=== PATIENT | male | born 1935 | race Caucasian/White ===

== ENCOUNTER 2017-09-05 07:21 | Day surgery (SDC) | payer MEDICARE, OTHER ==
[~2017-09-05] VITALS: Ht 167.6 cm; Wt 72.6 kg
[~2017-09-05 07:21] MED LIST: ACEHYDSO AD; ACEHYDSO BOTHEARS; ALBU90OI6 INH; ASPI325 PO; ASPI81CH PO; ASPI81EC; ASPI81EC PO; ATEN25; ATOR10; Aspirin EC81 MG PO; BUDE6HFA; CEPH500 PO; CLOP75; CYCL10; CYCL10 PO; Coq-10100 MG PO; DOC250 PO; DOCU100; DOCU100 PO; Dazidox10 MG; ERGO50000; ERGO50000 PO; FERSU220EL; FIBE4P; FISH OIL; FISH OIL 1,0001 EAC1 PO; FISH1000; FISH1000 PO; GABA100 PO; GABA300; GLIP10; GLIP5; HYDCHLSU PO; INSUASPI; INSUASPI SC; INSULANI; INSULANPEN; INSULANPEN SC; LAVAP17G; LAVAP17G PO; LISI20 PO; LISI5; LISI5 PO; MECL25; MORP15ER; MULVITB&C; MULVITMIND; MULVITMIND PO; NEBI10; NIAC500; NITR.4SL; OMEP20ER PO; OXYACE5T PO; OXYC10TA19; OXYC10TA19 PO; OXYGEN; PHENY100ER; PHENY100ER PO; PRED5; SUPER B COMPLE1 EACH PO; TAMS.4ER; TAMS.4ER PO; TIOT18; TOCO400; TOPI50 PO; TORSE20; TRAM50 PO; UBID100
[2017-09-05] MEDS ORDERED: ALBU90OI61 INH (08:24)
[2017-09-05] MEDS ORDERED: GLACIAL ACETIC A1 ML MC (08:25)
== END 2017-09-05 10:37 | disposition home or self-care (01) ==
LOC: ORSCSDS 07:21
DX: M20.42 Other hammer toe(s) (acquired), left foot (principal); L03.032 Cellulitis of left toe; L85.9 Epidermal thickening, unspecified; I10 Essential (primary) hypertension; J44.9 Chronic obstructive pulmonary disease, unspecified; Z87.891 Personal history of nicotine dependence; I25.10 Atherosclerotic heart disease of native coronary artery without angina pectoris; E11.9 Type 2 diabetes mellitus without complications; Z79.4 Long term (current) use of insulin; Z79.82 Long term (current) use of aspirin; Z79.899 Other long term (current) drug therapy
CPT/HCPCS: 82947; J0330; J0690; J3010; J7120

== ENCOUNTER → 2017-09-16 | Outpatient (CLI) | payer MEDICARE, OTHER ==
[~2017-09-16] MED LIST changes: +ALBU90OI61 INH; +GLACIAL ACETIC A1 ML MC
== END | disposition home or self-care (01) ==
LOC: LAB EV 11:40
DX: E11.42 Type 2 diabetes mellitus with diabetic polyneuropathy (principal)
CPT/HCPCS: 82043

== ENCOUNTER → 2018-04-29 | Outpatient (CLI) | payer MEDICARE, OTHER ==
[2018-04-29 09:53] LABS: BASOPHILS ABSOLUTE AUTO 0.03 K/mm3 (0.00-0.23); BASOPHILS PERCENT AUTO 0 % (0-2); EOSINOPHILS ABSOLUTE AUTO 0.12 K/mm3 (0.00-0.68); EOSINOPHILS PERCENT AUTO 1 % (0-6); Hematocrit 45.6 % (37.0-53.0); Hemoglobin 15.3 g/dL (13.5-17.5); IMMATURE GRAN ABSOLUTE AUTO 0.04 K/mm3 (0.00-0.10); IMMATURE GRAN PERCENT AUTO 1 % (0-1); LYMPHOCYTES ABSOLUTE AUTO 1.45 K/mm3 (0.84-5.20); LYMPHOCYTES PERCENT AUTO 17 % (21-46); MONOCYTES ABSOLUTE AUTO 0.63 K/mm3 (0.16-1.47); MONOCYTES PERCENT AUTO 7 % (4-13); Mean Corpuscular HGB 30.8 pg (26.0-34.0); Mean Corpuscular HGB Conc 33.6 g/dL (31.5-36.5); Mean Corpuscular Volume 92 fL (80-100); Mean Platelet Volume 9.7 fL (9.1-12.4); NEUTROPHILS ABSOLUTE AUTO 6.48 K/mm3 (1.96-9.15); NEUTROPHILS PERCENT AUTO 74 % (41-73); Platelet Count 208 K/mm3 (150-400); RDW Standard Deviation 43.6 fL (35.1-46.3); Red Blood Cell Count 4.97 M/mm3 (4.30-5.90); White Blood Cell Count 8.75 K/mm3 (4.00-11.30)
== END | disposition home or self-care (01) ==
LOC: LAB EV 09:50 → LAB SHORT 09:50
PROVIDERS: Physician Assistant
DX: K92.2 Gastrointestinal hemorrhage, unspecified (principal)
CPT/HCPCS: 85025

== ENCOUNTER 2019-04-20 11:30 | Observation (INO) | payer MEDICARE, OTHER ==
[~2019-04-20] VITALS: Ht 175.3 cm; Wt 76.9 kg
[~2019-04-20 11:30] MED LIST changes: +Acetic Acid15 ML LEFTEAR; -GLACIAL ACETIC A1 ML MC; -LISI20 PO; -OXYC10TA19 PO; +OXYC5 PO; +Prinivil10 MG PO
[2019-04-20 12:02] LABS: BASOPHILS ABSOLUTE AUTO 0.02 K/mm3 (0.00-0.23); BASOPHILS PERCENT AUTO 0 % (0-2); EOSINOPHILS PERCENT AUTO 1 % (0-6); Hematocrit 46.1 % (37.0-53.0); Hemoglobin 14.8 g/dL (13.5-17.5); IMMATURE GRAN ABSOLUTE AUTO 0.02 K/mm3 (0.00-0.10); IMMATURE GRAN PERCENT AUTO 0 % (0-1); LYMPHOCYTES ABSOLUTE AUTO 1.44 K/mm3 (0.84-5.20); LYMPHOCYTES PERCENT AUTO 20 % (21-46); MONOCYTES ABSOLUTE AUTO 0.61 K/mm3 (0.16-1.47); MONOCYTES PERCENT AUTO 9 % (4-13); Mean Corpuscular HGB Conc 32.1 g/dL (31.5-36.5); Mean Corpuscular Volume 96 fL (80-100); Mean Platelet Volume 10.4 fL (9.1-12.4); NEUTROPHILS ABSOLUTE AUTO 5.02 K/mm3 (1.96-9.15); NEUTROPHILS PERCENT AUTO 70 % (41-73); Platelet Count 168 K/mm3 (150-400); RDW Coefficient Variation 12.8 % (11.7-14.2); RDW Standard Deviation 44.8 fL (35.1-46.3); Red Blood Cell Count 4.78 M/mm3 (4.30-5.90); White Blood Cell Count 7.21 K/mm3 (4.00-11.30)
[2019-04-20 12:20] LABS: Alanine Aminotransfer (ALT/SGP 22 U/L (12-78); Albumin, Blood 3.7 g/dL (3.4-5.0); Albumin/Globulin Ratio 0.9 (0.8-1.8); Alk Phos 66 U/L (50-136); Anion Gap 7 mmol/L (6-16); Aspartate Aminotrans (AST/SGOT 23 U/L (12-37); Bilirubin, Total 0.5 mg/dL (0.1-1.0); Blood Urea Nitrogen 32 mg/dL (8-24); Bun/Creatinine Ratio 31.4 (12.0-20.0); CO2, Blood 27 mmol/L (21-32); Calcium, Blood 9.3 mg/dL (8.5-10.1); Chloride, Blood 105 mmol/L (98-108); Creatinine, Blood 1.02 mg/dL (0.60-1.20); Globulin, Blood 4.3 g/dL (2.2-4.0); Glomerular Filtration Rate >60 (60-); Glucose, Blood 187 mg/dL (70-99); Potassium, Blood 4.7 mmol/L (3.5-5.5); Sodium, Blood 139 mmol/L (136-145)
[2019-04-20] MEDS ORDERED: DOC250 PO (14:47)
[2019-04-20] MEDS ORDERED: CLOP75 PO (14:47)
[2019-04-20] MEDS ORDERED: Capsaicin60 GM TOP (14:47)
[2019-04-20] MEDS ORDERED: HYDCOR2.5C TOP (14:48)
[2019-04-20] MEDS ORDERED: Motion Sickness25 M5 PO (14:50)
[2019-04-20 15:27] LABS: Cholesterol 233 mg/dL (50-200); HDL Cholesterol 78 mg/dL (>39); LDL/HDL RATIO 1.8; Low Density Lipoprotein Chol 141 mg/dL (0-110); Triglycerides 69 mg/dL (30-160); Very Low Density Lipoprot Chol 13 mg/dL (6-32)
--- NOTE | 2019-04-20 15:45 | NUR ---
PATIENT ARRIVED VIA [facility], REPORT RECEIVED FROM SHANNA AZUL IN ED. L SIDED WEAKNESS AND SLURRED SPEECH HAS NOW RESOLVED. VSS, ON RA. PATIENT REPORTS GOOD PAIN CONTROL AT THIS TIME, OXYCODONE GIVEN X1 IN ED FOR CHRONIC "ALL OVER PAIN" PATIENT ORIENTED TO ROOM AND USE OF CALL LIGHT.
--- NOTE | 2019-04-20 17:06 | NUR ---
echocardiogram completed.
--- NOTE | 2019-04-20 19:31 | NUR ---
04/20/191929 DR PEREZ (CARDIOLOGY MD) CALLED AND REQUESTED PHONE NO. OF ATTENDING MD SIMS. NUMBER GIVEN AND PLANS TO CALL DR FRY REGARDING HIS ECHO TEST THAT WAS DONE TODAY. NO OTHER INFO. GIVEN.
--- NOTE | 2019-04-20 20:03 | NUR ---
04/20/191999 TO CTA VIA [facility]. NAIL EXPERT NOTIFIED.
--- NOTE | 2019-04-21 00:23 | NUR ---
04/21/19 0014 PAGED OPHTHALMOLOGY ASSISTANT MD ABOUT PT'S GRADUAL DECREASED HEART RATE SINCE ADMISSION. PRESENTLY ON HEART MONITOR HE IS "SINUS FRANCISCO. AT 45-46 WITH BBB AND OCC PACS. PT SLEEPING AND ASYMPTOMATIC. STATES TO "JUST WATCH IT FOR NOW."
--- NOTE | 2019-04-21 04:05 | NUR ---
04/21/19 0330 ASSISTED PT TO STAND AT BEDISDE FOR VOIDING. SLIGHT INCONTINENCE IN BRIEF---CHANGED. GIVEN SNACK AND WATER WITH MED NOW. PT NPO AFTER 4 AM FOR PROCEDURE. HEART MONITOR AT SR IN THE 60'S NOW PER CONSUMER SAFETY INSPECTOR, HAYLEY. VITALS STABLE.
[2019-04-21 04:43] LABS: BASOPHILS ABSOLUTE AUTO 0.02 K/mm3 (0.00-0.23); BASOPHILS PERCENT AUTO 0 % (0-2); EOSINOPHILS ABSOLUTE AUTO 0.17 K/mm3 (0.00-0.68); EOSINOPHILS PERCENT AUTO 2 % (0-6); Hematocrit 43.5 % (37.0-53.0); Hemoglobin 13.9 g/dL (13.5-17.5); IMMATURE GRAN ABSOLUTE AUTO 0.02 K/mm3 (0.00-0.10); IMMATURE GRAN PERCENT AUTO 0 % (0-1); LYMPHOCYTES ABSOLUTE AUTO 2.17 K/mm3 (0.84-5.20); LYMPHOCYTES PERCENT AUTO 31 % (21-46); MONOCYTES ABSOLUTE AUTO 0.68 K/mm3 (0.16-1.47); MONOCYTES PERCENT AUTO 10 % (4-13); Mean Corpuscular HGB 30.2 pg (26.0-34.0); Mean Corpuscular Volume 94 fL (80-100); Mean Platelet Volume 10.3 fL (9.1-12.4); NEUTROPHILS ABSOLUTE AUTO 4.02 K/mm3 (1.96-9.15); NEUTROPHILS PERCENT AUTO 57 % (41-73); Platelet Count 147 K/mm3 (150-400); RDW Coefficient Variation 12.9 % (11.7-14.2); RDW Standard Deviation 44.2 fL (35.1-46.3); Red Blood Cell Count 4.61 M/mm3 (4.30-5.90); White Blood Cell Count 7.08 K/mm3 (4.00-11.30)
[2019-04-21 05:02] LABS: Anion Gap 5 mmol/L (6-16); Blood Urea Nitrogen 32 mg/dL (8-24); Bun/Creatinine Ratio 30.8 (12.0-20.0); CO2, Blood 28 mmol/L (21-32); Calcium, Blood 8.7 mg/dL (8.5-10.1); Chloride, Blood 104 mmol/L (98-108); Creatinine, Blood 1.04 mg/dL (0.60-1.20); Glomerular Filtration Rate >60 (60-); Glucose, Blood 110 mg/dL (70-99); Potassium, Blood 4.1 mmol/L (3.5-5.5); Sodium, Blood 137 mmol/L (136-145)
--- NOTE | 2019-04-21 13:08 | NUR ---
Patient is sitting on the edge of his bes and alert. 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 Patient voiced appreciation for the visit. I will continue to remain available to patient and family.
--- NOTE | 2019-04-21 13:22 | NUR ---
TIMEOUT FOR PETEY COMPLETED AT 1305. PETEY COMPLETED AT 1320; PT TOLERATED WELL. DR SONI SPOKE WITH PT POST PETEY REALTIVE TO FINDINGS. CALL LIGHT IN REACH.
--- NOTE | 2019-04-21 13:35 | NUR ---
PT SITTING UP. PT DENIES CP OR ANY PAIN.
--- NOTE | 2019-04-21 14:25 | NUR ---
PT DRANK SIPS OF WATER WITH NO ASPIRATION. PT DENIES ANY PAIN. PT WATCHING TV AND CALL LIGHT IN REACH.
--- NOTE | 2019-04-21 18:28 | NUR ---
PATIENT A/OX4, UP WITH FWW AND 1 ASSIST TO RESTROOM. 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 PATIENT TOLERATING SOFT DIET THIS EVENING FOR DINNER. CONTINENT/INCONTINENT. 20G IV TO R AC WNL AND SL. VSS, ON RA. CALM AND COOPERATIVE WITH CARE, USES CALL LIGHT APPROPRIATELY FOR ASSISTANCE. MEDICATED X1 FOR CHRONIC "ALL OVER" PAIN WITH OXYCODONE. PATIENT TAKES PILLS WHOLE WITH WATER.
--- NOTE | 2019-04-22 05:43 | NUR ---
SHIFT SUMMARY NO ACUTE CHANGES THIS EVENING. PT SLEPT WELL THROUGH MOST OF THE NIGHT. PT INCONTINENT/CONTINENT. PULL UP IN PLACE. APPEARS SLIGHTLY MORE CONFUSED DURING THE EVENING, HAVING A BIT MORE DIFFICULTY ANSWERING QUESTIONS BUT WAS ABLE TO EVENTUALLY ANSWER ALL QUESTIONS APPROPRIATELY. PT HAD A SNACK OF YOGURT AND SANDWICH BEFORE BED AND TOLERATED WELL. MEDICATED W/ 5 MG ROXICODONE BEFORE BED, NO FURTHER REQUESTS FOR PAIN MEDICATION THIS SHIFT. TELEMETRY UNIT IN PLACE, READING THIS EVENING SINUS FRANCISCO W/ BBB AND PAC'S AT 57. VSS. WILL CONTINUE TO MONITOR.
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
[2019-04-22] MEDS ORDERED: ACET325 PO (12:02)
[2019-04-22] MEDS ORDERED: ASPI81CH PO (12:03)
--- NOTE | 2019-04-22 12:55 | NUR ---
PT UP TO RR WITH USE OF WALKER. VOIDED AND STOOLED. BACK TO CHAIR.
--- NOTE | 2019-04-22 15:10 | NUR ---
DISCHARGE SUMMARY PT DISCHARGED TO HOME. PT LEFT ROOM VIA WHEELCHAIR WITH TECHNICAL SERVICES REP ESCORT AT THIS TIME. PT EDUCATED ON MEDICATIONS AND INSTRUCTED TO FOLLOW UP WITH PCP AND DR. SONI. PT EXPRESSED CONCERN ABOUT NOT HAVING A PCP WITH [facility]. BRENTON QUINTERO CALLED MS AND MS TO CALL PT TO SCHEDULE THIS FOLLOW UP APPOINTMENT WITH THE NEWLY ASSIGNED PCP. THERAPEUTIC COMMUNICATION AND ACTIVE LISTENING UTILIZED.
[2019-05-01] MEDS ORDERED: MIRALAX17 GM PO (12:44)
[2019-05-01] MEDS ORDERED: PHENY100ER PO (12:44)
[2019-05-01] MEDS ORDERED: TUMS500 MG PO (12:46)
[2019-05-01] MEDS ORDERED: Flomax0.4 MG PO (12:46)
[2019-05-01] MEDS ORDERED: NITR.6SL SL (12:46)
== END 2019-04-22 15:39 | disposition home or self-care (01) ==
LOC: ER 11:30 → MEDS 11:31 → ER 15:32 → MEDS 15:33 → ENPENDDIS 04-22 11:53 → MEDS 04-22 15:39
PROVIDERS: Emergency Medicine; ADMIT Internal Medicine
DX: G45.9 Transient cerebral ischemic attack, unspecified (principal); I11.9 Hypertensive heart disease without heart failure; E11.9 Type 2 diabetes mellitus without complications; I35.0 Nonrheumatic aortic (valve) stenosis; I77.9 Disorder of arteries and arterioles, unspecified; I25.2 Old myocardial infarction; M54.9 Dorsalgia, unspecified; G89.29 Other chronic pain; F11.20 Opioid dependence, uncomplicated; Z85.038 Personal history of other malignant neoplasm of large intestine; Z87.891 Personal history of nicotine dependence; Z79.1 Long term (current) use of non-steroidal anti-inflammatories (NSAID); Z88.5 Allergy status to narcotic agent; Z88.7 Allergy status to serum and vaccine; Z88.8 Allergy status to other drugs, medicaments and biological substances; Z79.899 Other long term (current) drug therapy
CPT/HCPCS: 36415; 70450; 70498; 71045; 80048; 80053; 80061; 82947; 83036; 84443; 85025; 93005; 93010; 93306; 93312; 93325; 93880; 96372; 99152; 99285-25; G0378; J1650; J2250; J3010; J7030; Q9967

== ENCOUNTER 2019-05-04 05:42 | Day surgery (SDC) | payer OTHER, MEDICARE ==
[~2019-05-04] VITALS: Ht 167.6 cm; Wt 72.0 kg
[~2019-05-04 05:42] MED LIST changes: +ACET325 PO; +CLOP75 PO; +Capsaicin60 GM TOP; +Flomax0.4 MG PO; +HYDCOR2.5C TOP; +MIRALAX17 GM PO; +Motion Sickness25 M5 PO; +NITR.6SL SL; +TUMS500 MG PO
--- NOTE | 2019-05-04 08:16 | NUR ---
PT RETURNED TO RECOVERY ROOM IN [facility]. PT'S IN ROOM TO SEE PT. DR SONI IN ROOM TO SEE PT AND . PT HAS RIGHT RADIAL TR BAND IN PLACE WITH WRIST BOARD. PT TRANSFERED TO BSC TO VOID.
--- NOTE | 2019-05-04 08:25 | NUR ---
RIGHT RADIAL TR BAND SITE WITH WRIST SOFT WITH NO HEMATOMA AND NO PULSATILE BLEEDING. PT EATING BREAKFAST. CALL LIGHT IN REACH.
[2019-05-04] MEDS ORDERED: Toprol Xl25 MG PO (08:37)
[2019-05-04] MEDS ORDERED: ELIQUIS2.5 MG PO (08:38)
--- NOTE | 2019-05-04 10:10 | NUR ---
9 CC OF AIR REMOVED OVER 15 MIN FROM NOW DEFLATED RIGHT TR BAND. NO HEMATOMA AND NO PULSATILE BLEEDING. DISCHARGE INSTRUCTIONS REVIEWED AND ALL QUESTIONS ANSWERED.
--- NOTE | 2019-05-04 10:18 | NUR ---
NO CHANGES TO DEFLATED RIGHT TR BAND.
--- NOTE | 2019-05-04 10:33 | NUR ---
NO CHANGES TO DEFLATED RIGHT TR BAND SITE.
--- NOTE | 2019-05-04 11:11 | NUR ---
DEFLATED RIGHT TR BAND REMOVED AND POLLYMEM PLACED OVER RIGHT RADIAL SITE AND RIGHT WRIST BOARD PLACED BACK ON. RIGHT RADIAL SITE SOFT WITH NO HEMATOMA AND NO PULSATILE BLEEDING. RIGHT ARM SLING PLACED. 20 G IV DISCONTINUED FROM LEFT AC WITH INTACT CANNULA. PT ESCORTED OUT VIA WHEELCHAIR ESCORT.
== END 2019-05-04 11:15 | disposition home or self-care (01) ==
LOC: MHTC 05:42
DX: Z01.810 Encounter for preprocedural cardiovascular examination (principal); I25.119 Atherosclerotic heart disease of native coronary artery with unspecified angina pectoris; I35.0 Nonrheumatic aortic (valve) stenosis; I65.21 Occlusion and stenosis of right carotid artery; I48.0 Paroxysmal atrial fibrillation; E11.9 Type 2 diabetes mellitus without complications; E78.5 Hyperlipidemia, unspecified; J44.9 Chronic obstructive pulmonary disease, unspecified; Z86.73 Personal history of transient ischemic attack (TIA), and cerebral infarction without residual deficits; Z79.01 Long term (current) use of anticoagulants; Z79.82 Long term (current) use of aspirin; Z79.899 Other long term (current) drug therapy; Z79.4 Long term (current) use of insulin; Z87.891 Personal history of nicotine dependence; Z88.8 Allergy status to other drugs, medicaments and biological substances
CPT/HCPCS: 93454; 99152; 99153; C1769; C1894; J1644; J2250; J3010; J7030; Q9967

== ENCOUNTER 2019-12-29 18:43 | Inpatient (IN) | payer OTHER, MEDICARE ==
[~2019-12-29] VITALS: Ht 182.9 cm; Wt 79.5 kg
[~2019-12-29 18:43] MED LIST changes: +B Complex-Foli1 EACH PO; +ELIQUIS2.5 MG PO; +FISH OIL 500 M1 EAC1 PO; +Hair, Skin & N1 EACH; +MAGNESIUM GLUCO27 MG PO; +METO25ER PO; -MULVITMIND PO; +Motion Sickness25 M1 PO; -Prinivil10 MG PO; +SODCHL3.5O BOTHEYES; +VITAMIN D-40010 MCG PO
[2019-12-29 19:15] LABS: BASOPHILS ABSOLUTE AUTO 0.01 K/mm3 (0.00-0.23); BASOPHILS PERCENT AUTO 0 % (0-2); EOSINOPHILS ABSOLUTE AUTO 0.06 K/mm3 (0.00-0.68); EOSINOPHILS PERCENT AUTO 1 % (0-6); Hemoglobin 11.7 g/dL (13.5-17.5); IMMATURE GRAN ABSOLUTE AUTO 0.04 K/mm3 (0.00-0.10); IMMATURE GRAN PERCENT AUTO 0 % (0-1); LYMPHOCYTES PERCENT AUTO 19 % (21-46); MONOCYTES ABSOLUTE AUTO 0.81 K/mm3 (0.16-1.47); MONOCYTES PERCENT AUTO 8 % (4-13); Mean Corpuscular HGB Conc 31.6 g/dL (31.5-36.5); Mean Corpuscular Volume 98 fL (80-100); Mean Platelet Volume 10.4 fL (9.1-12.4); NEUTROPHILS PERCENT AUTO 73 % (41-73); Platelet Count 175 K/mm3 (150-400); RDW Coefficient Variation 12.9 % (11.7-14.2); RDW Standard Deviation 45.9 fL (35.1-46.3); Red Blood Cell Count 3.77 M/mm3 (4.30-5.90); White Blood Cell Count 10.82 K/mm3 (4.00-11.30)
[2019-12-29 19:31] LABS: International Normalized Ratio 1.1; Prothrombin Time Results 11.7 Sec (9.7-11.5)
[2019-12-29 19:33] LABS: Alanine Aminotransfer (ALT/SGP 13 U/L (12-78); Albumin, Blood 2.7 g/dL (3.4-5.0); Albumin/Globulin Ratio 0.8 (0.8-1.8); Alk Phos 47 U/L (50-136); Anion Gap 8 mmol/L (6-16); Aspartate Aminotrans (AST/SGOT 17 U/L (12-37); Bilirubin, Total 0.6 mg/dL (0.1-1.0); Blood Urea Nitrogen 72 mg/dL (8-24); Bun/Creatinine Ratio 69.9 (12.0-20.0); CO2, Blood 24 mmol/L (21-32); Calcium, Blood 8.5 mg/dL (8.5-10.1); Chloride, Blood 106 mmol/L (98-108); Creatinine, Blood 1.03 mg/dL (0.60-1.20); Globulin, Blood 3.3 g/dL (2.2-4.0); Glomerular Filtration Rate >60 (60-); Glucose, Blood 318 mg/dL (70-99); Potassium, Blood 5.4 mmol/L (3.5-5.5); Sodium, Blood 138 mmol/L (136-145)
[2019-12-29] MEDS ORDERED: OXYC5 PO (20:35)
[2019-12-29] MEDS ORDERED: INSULANPEN SC (20:51)
--- NOTE | 2019-12-29 22:55 | NUR ---
ADMIT NOTE ADMIT 84 YEAR OLD MALE TO ICU 10 PER SERGIO VIA ER TO HOSPITALIST DR. GUZMAN AND DR DARBY. TRANSFER TO BED USLING LIFT SHEET. DR DARBY SPOKE TO THIS RN TO GIVE UPDATE. ON PATIENT CONDITION. ORDERS NOTED. MONITOR PLACED SHOWING A FIB HEART RATE 120'S-130'S. MEDICATED WITH 5MG IV LOPRESSOR. SEE MONITOR STRIPS. LUNG SOUNDS CLEAR DECREASED SOUNDS IN THE BASES SPO2 98% ON ROOM AIR. ABDOMENS SOFT TENDER WITH BOWEL SOUNDS FOUR QUADS. NIELSEN WELL IN BED BLOOD CONSENT AND RELEASE OF MEDICAL INFORMATION COMPLETED. PULSES PRESENT NO EDEMA NOTED. RAMBLING CONVERSATIONS UNABLE TO GIVE ACCURATE INFORMATION RE MEDICATIONS/ALLERGIES. VISUAL HALLUCINATIONS NOTED STATES HE SEES HIS DOG "LACEY " RUNNING UNDER THE CURTAIN AND INTO THE ROOM TO SEE HIM. STATES "I SURE MISS HIM AND I KNOW HE MISSES ME."DEPENDS IN PLACE MODERATE AMT DK BROWN DRIED STOOL NOTED ATTENDS CHANGED AND PARTIAL BED BATH KALI CARE GIVEN. COOPERATIVE FOLLOWS DIRECTION. NIELSEN WELL IN BED.CONTINUE TO MONITOR AND REPORT CHANGE IN PATIENT CONDITION.
[2019-12-30 03:29] LABS: BASOPHILS ABSOLUTE AUTO 0.01 K/mm3 (0.00-0.23); BASOPHILS PERCENT AUTO 0 % (0-2); EOSINOPHILS ABSOLUTE AUTO 0.04 K/mm3 (0.00-0.68); EOSINOPHILS PERCENT AUTO 0 % (0-6); Hematocrit 34.7 % (37.0-53.0); IMMATURE GRAN ABSOLUTE AUTO 0.05 K/mm3 (0.00-0.10); IMMATURE GRAN PERCENT AUTO 0 % (0-1); LYMPHOCYTES PERCENT AUTO 20 % (21-46); MONOCYTES ABSOLUTE AUTO 0.99 K/mm3 (0.16-1.47); MONOCYTES PERCENT AUTO 9 % (4-13); Mean Corpuscular HGB 30.7 pg (26.0-34.0); Mean Corpuscular HGB Conc 31.7 g/dL (31.5-36.5); Mean Corpuscular Volume 97 fL (80-100); Mean Platelet Volume 10.6 fL (9.1-12.4); NEUTROPHILS ABSOLUTE AUTO 8.01 K/mm3 (1.96-9.15); NEUTROPHILS PERCENT AUTO 71 % (41-73); Platelet Count 150 K/mm3 (150-400); RDW Standard Deviation 45.5 fL (35.1-46.3); Red Blood Cell Count 3.58 M/mm3 (4.30-5.90)
[2019-12-30 03:43] LABS: Anion Gap 6 mmol/L (6-16); Blood Urea Nitrogen 71 mg/dL (8-24); Bun/Creatinine Ratio 68.3 (12.0-20.0); CO2, Blood 25 mmol/L (21-32); Calcium, Blood 8.4 mg/dL (8.5-10.1); Chloride, Blood 110 mmol/L (98-108); Creatinine, Blood 1.04 mg/dL (0.60-1.20); Glomerular Filtration Rate >60 (60-); Glucose, Blood 277 mg/dL (70-99); Potassium, Blood 5.3 mmol/L (3.5-5.5); Sodium, Blood 141 mmol/L (136-145)
--- NOTE | 2019-12-30 06:43 | NUR ---
SHIFT SUMMARY ; REMAINS CONFUSED COOPERATIVE MOST OF TIME MONITOR INTACT SHOWING A FIB HEART RATE 80'S-120'S. CONTINUES WITH RAMBLING CONVERSATIONS BED ALARM ON FREQUENT REMINDERS ON HOW TO USE CALL LIGHT ABDOMEN SOFT WITH BOWEL SOUNDS FOUR QUADS INCONTINENT OF URINE NO S/S ACTIVE BLEEDING. REPOSITIONS SELF IN BED BED ALARM ON FOR SAFETY/IMPULSIVENESS CONTINUE TO MONITOR AND REPORT CHANGE IN PATIENT CONDITION..
[2019-12-30 10:02] LABS: Hematocrit 32.6 % (37.0-53.0); Hemoglobin 10.7 g/dL (13.5-17.5)
--- NOTE | 2019-12-30 11:13 | NUR ---
CARE ASSUMED ASSESSMENT COMPLETED, PT DENES PAIN OR NAUSEA AT THIS TIME. HR 100-120 AFIB, OTHER VSS. PT ALERT AND ORIENTED X3, MILDLY CONFUSED AT TIMES BUT APPROPRIATE AND COOPERATIVE WITH CARE, USING CALL LIGHT. LS CLEAR, ABD TENDERNESS ONLY PRESENT WITH PALPATION, DENIES NAUSEA, PT VOIDING IN URINAL WITH ASSISTANCE. PT ASSISTED UP TO BSC FOR MED BLACK SOFT/LIQUID BM, SMELLS OF BLOOOD. PT BACK TO BED, GAIT STEADY. HR UP TO 120'S WITH EXERTION, THEN BACK TO LOW 100'S AT REST. PT PLEASANT AND COOPERATIVE, DENIES OTHER NEEDS, TAKING PO LIQUIDS WITHOUT DIFFICULTY. SPOKE ON PHONE WITH , IS NOW RESTING IN BED WITH EYES CLOSED. PROTONIX INFUSING AT 10ML/HR, NS AT 100ML/HR.
--- NOTE | 2019-12-30 12:42 | NUR ---
UPDATE PT BECAME IRRITABLE, CALLING OUT OF ROOM, NOT USING CALL LIGHT. REPORTS HE IS PAINFUL, MEDICATED FOR PAIN, REQUESTING TO BE MOVED TO ANOTHER UNIT. PT REORIENTED, EXPLAINED NECESSITY OF BEING IN ICU, PT VERBALIZES UNDERSTANDING BUT REMAINS IRRITABLE. NO COMBATIVE OR UNCOOPERATIVE BEHAVIORS. NO ADDITIONAL BM'S SINCE THIS MORNING, PT NOW NPO FOR SCOPE LATER TODAY PER DR. ESTEBAN. PT ON PHONE WITH HIS SON. VS UNCHANGED.
[2019-12-30 15:43] LABS: Hematocrit 32.5 % (37.0-53.0); Hemoglobin 10.5 g/dL (13.5-17.5)
--- NOTE | 2019-12-30 15:45 | NUR ---
12/30/19 1545 Vincent Flynn History, Chart, Medications and Allergies reviewed before start of procedure.MONITOR INTACT WITH CONTINUOUS PULSE OXIMETRY AND INTERMITTENT BP.3-LEAD EKG REVIEWED WITH PHYSICIAN PRIOR TO START OF PROCEDURE.O2 VIA N/C INTACT THROUGHOUT SEDATION/PROCEDURE. See Anesthesia record.
--- NOTE | 2019-12-30 16:09 | NUR ---
SCOPE PT HAS BEEN RESTING IN BED THIS AFTERNOON WITH NO C/O AFTER PAIN MEDICATION WAS ADMINISTERED, VSS. UP TO BS FOR A SECOND BLACK BM THIS SHIFT, SMALL AND LIQUID. THEN BACK TO BED, PROCEDURE CREW AT BEDSIDE WITH ANESTHESIOLOGIST AND DR. ESTEBAN, PT SCOPED AT 1600.
--- NOTE | 2019-12-30 16:40 | NUR ---
EGD UPDATE PT TOLERATED SCOPE WELL, BLEEDING SOURCE IDENTIFIED AND CAUTERIZED. PT DROWSY AT THIS TIME BUT WAKES EASILY, CONFUSED. PT REORIENTED TO SITUATION, IS NOW RESTING WITH EYES CLOSED. VSS. UPDATED.
--- NOTE | 2019-12-30 18:43 | NUR ---
END OF SHIFT PT HAS RECOVERED WELL FROM ANESTHESIA, IS NOW ALERT AND ORIENTED, APPROPRIATE AND COOPERATIVE WITH CARE. METOPROLOL ADMINISTERED FOR HR 115-130, BP STABLE BEFORE AND AFTER ADMINISTRATION. BEDBATH, SKIN CARE, AND ORAL CARE COMPLETED, ATTENDS CHANGED. PT COOPERATIVE AND REQUIRES LITTLE ASSISTANCE, REPOSITIONS SELF IN BED. LINENS CHANGED, PT NOW RESTING WITH EYES CLOSED, HR 100-110, BP STABLE. PROTONIX INFUSING AT 10ML/HR, NS INFUSING AT 100ML/HR. REPORT TO ONCOMING SHIFT.
--- NOTE | 2019-12-30 19:20 | NUR ---
INITAL SHIFT ASSESSMENT PT IS ALERT AT THIS TIME. HE IS ORIENTED TO HIMSELF AND THE HOSPITAL. NOT ABLE TO TELL THIS NURSE THE YEAR OR DATE. COOPERTIVE WITH INITAL SHIFT ASSESSMENT. DENIES ANY PAIN CURRENTLY. DISCUSSED PAIN MEDICATION WITH HIM AND HE STATES HE WOULD LIKE TO HAVE IT OFTEN ALLOWED TO KEEP PAIN AWAY. REVIEWED CALL LIGHT WITH PT AT THIS TIME. PT HAS PROTONIX GTT RUNNING ORDERED IN FA IV THAT IS PATENT WITH NO S/S OF INFECTION. VITALS ARE STABLE AT THIS TIME. WILL CON'T TO MONITOR PT AND KEEP SAFE. BED ALARM IS ON. CALL LIGHT IN REACH.
--- NOTE | 2019-12-30 23:27 | NUR ---
SHIFT UPDATED PT CON'T TO BE COOPERATIVE WITH CARE. HE HAS USED HIS CALL LIGHT A FEW TIMES. WILL CON'T TO CLOSELY CHECK ON HIM. HE DOES NOT ALLWAYS CALL WHEN HIS ATTENDS ARE WET. VITALS ARE STABLE. WILL CON'T TO MONITOR AND KEEP PT SAFE. BED ALARM ON. REVIEWED CALL LIGHT AGAIN WITH PT.
[2019-12-31 03:47] LABS: Hematocrit 28.2 % (37.0-53.0); Hemoglobin 9.1 g/dL (13.5-17.5); Mean Corpuscular HGB 31.5 pg (26.0-34.0); Mean Corpuscular HGB Conc 32.3 g/dL (31.5-36.5); Mean Corpuscular Volume 98 fL (80-100); Mean Platelet Volume 10.2 fL (9.1-12.4); Platelet Count 138 K/mm3 (150-400); RDW Coefficient Variation 13.2 % (11.7-14.2); RDW Standard Deviation 46.6 fL (35.1-46.3); Red Blood Cell Count 2.89 M/mm3 (4.30-5.90); White Blood Cell Count 9.99 K/mm3 (4.00-11.30)
--- NOTE | 2019-12-31 05:21 | NUR ---
SHIFT SUMMARY PT CON'T TO BE STABLE WITH NO CHANGES FROM BASELINE. HE HAS USED HIS CALL LIGHT A FEW TIMES THIS SHIFT. MOSTLY WHEN THIS NURSE SEES THAT HE IS MOVING ABOUT SHE GOES IN ROOM. HE THEN STATES HE THINKS HIS ATTENDS IS WET. HE IS ABLE TO HELP WITH TURNS. VITALS HAVE BEEN STABLE T/O SHIFT. PROTONIX AND NS GTTS CON'T TO RUN ORDERED. PT DID RECIEVE TYLENOL THIS AM FOR A HEADACHE. STATES IT IS SLIGHTLY BETTER. WILL CON'T TO MONITOR AND KEEP PT SAFE. CALL LIGHT IN REACH AND BED IN LOW POSITION.
--- NOTE | 2019-12-31 18:17 | NUR ---
SUMMARY Assumed care of pt at 0700. Bedside report received from Aleyda OTERO. Pt on A&O x 2. Follows directions, verbalizes needs, follows commands. NPO for breakfast and lunch, except water and ice chips per orders from Dr Clark. Pt had one maroon bowel movement into commode today. Pt tolerated full liquid dinner well. No acute changes since initially assessment. Will continue to closely monitor until care handoff and bedside report with oncoming RN.
--- NOTE | 2019-12-31 21:05 | NUR ---
CARE ASSUMPTION PT A&O X4. VSS. MONITOR SHOWS AFIB, HR 100-110's. SPO2 > 92% ON RA. PT REPORTS PAIN "ALL OVER" & STATES "I'VE CARRIED THIS PAIN WITH ME SINCE [place]." PT REPORTS ONLY RELIEF IS WITH PAIN MEDICINE & THAT SOMETIMES PAIN MEDICINE DOESN'T EVEN HELP. PAIN MEDICATION PROVIDED PER PT REQUEST/EMAR. PT REPORTS BM THIS EVENING AT SHIFT CHANGE "BLACK & BLOODY." PROTONIX GTT & NS GTT INFUSING PER ORDERS. PT RESTING IN ROOM. WILL CONTINUE TO MONITOR AND PROVIDE CARE.
[2020-01-01 03:24] LABS: Hematocrit 24.8 % (37.0-53.0); Hemoglobin 7.8 g/dL (13.5-17.5); Mean Corpuscular HGB 31.3 pg (26.0-34.0); Mean Corpuscular HGB Conc 31.5 g/dL (31.5-36.5); Mean Corpuscular Volume 100 fL (80-100); Mean Platelet Volume 10.1 fL (9.1-12.4); Platelet Count 126 K/mm3 (150-400); RDW Coefficient Variation 13.5 % (11.7-14.2); RDW Standard Deviation 47.8 fL (35.1-46.3); Red Blood Cell Count 2.49 M/mm3 (4.30-5.90); White Blood Cell Count 7.25 K/mm3 (4.00-11.30)
--- NOTE | 2020-01-01 04:32 | NUR ---
HGB / CALL TO MD CALL TO MD LEHMAN TO REPORT HGB DROP FROM 9.1 TO 7.8 THIS AM. W/ ORDERS TO REPEAT HGB @ NOON TODAY.
--- NOTE | 2020-01-01 06:33 | NUR ---
SHIFT SUMMARY PT CONTINUES TO BE A&O X4. BP LOW AT TIMES, SEE VITALS, OTHERWISE VSS. MONITOR SHOWS AFIB, HR 80's-110's. SPO2 > 92% ON RA. PT W/ 1 BM THIS SHIFT THAT PT & CHANGE BOOTH ATTENDANT REPORT "BLACK & BLOODY." NO FURTHER BM's OR SIGNS OF BLEEDING THIS SHIFT. HGB LOW, CALLED TO MD, SEE PREVIOUS NOTE. PROTONIX GTT & NS GTT INFUSING PER ORDERS. PT CONTINENT W/ EPISODES OF INCONTINENCE, WEARING ATTENDS. WILL CONTINUE TO MONITOR & PROVIDE CARE UNTIL REPORT OFF TO DAY SHIFT RN.
--- NOTE | 2020-01-01 07:31 | NUR ---
PT A&OX3-REPORTS 05/05 "ALL OVER" PAIN. HR 100-110'S A-FIB. SBP TRENDING 100'S. LUNGS CLEAR. NO NOTED SOB AT REST. MILD ABDOMINAL TENDERNESS TO PALPATION, BUT DENIES NAUSEA. NO ACUTE GIB AT THIS TIME. HEMOGLOBIN 7.8. RE-CHECK H&H @ 1200.
[2020-01-01 12:24] LABS: Hematocrit 25.2 % (37.0-53.0); Hemoglobin 7.8 g/dL (13.5-17.5)
[2020-01-01 12:32] LABS: Anion Gap 6 mmol/L (6-16); Blood Urea Nitrogen 27 mg/dL (8-24); Bun/Creatinine Ratio 31.5 (12.0-20.0); CO2, Blood 23 mmol/L (21-32); Calcium, Blood 7.8 mg/dL (8.5-10.1); Chloride, Blood 109 mmol/L (98-108); Creatinine, Blood 0.86 mg/dL (0.60-1.20); Glomerular Filtration Rate >60 (60-); Glucose, Blood 360 mg/dL (70-99); Potassium, Blood 4.3 mmol/L (3.5-5.5); Sodium, Blood 138 mmol/L (136-145)
--- NOTE | 2020-01-01 12:51 | NUR ---
PT UP TO BSC. HAD MED-LARGE BROWN SOFT STOOL WITH SOME FORMED STOOL NOTED. H&H UNCHANGED FROM THIS AM.
--- NOTE | 2020-01-01 12:53 | NUR ---
DR. BECK UPDATED TO PT CURRENT VS AND STATUS. UPDATED TO H&H RESULTS.
--- NOTE | 2020-01-01 13:11 | NUR ---
REPORT PHONED TO SHANNA LONG IN PREP TO TRANSFER PT TO ROOM PCU 14.
--- NOTE | 2020-01-01 13:59 | NUR ---
TRANSFER PT TRANSFER TO U 14 WITH BELONGINGS (INCLUDING SCOPE PICTURES), PT REPORTS HE WILL CALL HIS TO UPDATE ON NEW ROOM NUMBER.
--- NOTE | 2020-01-01 14:40 | NUR ---
ICU TRANSFER, REPORT FROM SHANNA ZAVALA. A/Stephen/OX4, RESTING IN BED, DENIES NEEDS. VSS, WILL CONTINUE TO MONITOR.
--- NOTE | 2020-01-01 21:43 | NUR ---
ASSUMED CARE OF PATIENT AT APPROXIMATELY 1910 FROM GLORIA Rodriguez RN. PATIENT ALERT AND ORIENTED TO SELF, AND LOCATION. PATIENT FORGETFUL. REPEATS SAME STATEMENTS EVERYTIME STAFF ENTERS ROOM. PATIENT SBA OUT OF BED; USES CANE AT BASELINE. ONE UNIT RBC WAS FINISHING AT SHIFT CHANGE. PROTONIX GTT. AFIB ON TELE W/ A RATE OF 80-100; OXYGEN SATURATION ABOVE 90% ON ROOM AIR. INCONTINENT OF URINE; ATTENDS IN PLACE. PATIENT CURRENTLY RESTING IN BED; CALL LIGHT IN REACH; BED IN LOWEST POSISTION; BED ALARM ON; WILL CONTINUE TO MONITOR AND ASSESS UNTIL END OF SHIFT.
[2020-01-02 05:23] LABS: Hematocrit 29.1 % (37.0-53.0); Hemoglobin 9.2 g/dL (13.5-17.5); Mean Corpuscular HGB 30.7 pg (26.0-34.0); Mean Corpuscular HGB Conc 31.6 g/dL (31.5-36.5); Mean Platelet Volume 10.6 fL (9.1-12.4); Platelet Count 142 K/mm3 (150-400); RDW Coefficient Variation 14.8 % (11.7-14.2); RDW Standard Deviation 51.8 fL (35.1-46.3); White Blood Cell Count 6.86 K/mm3 (4.00-11.30)
[2020-01-02 05:24] LABS: Mean Corpuscular Volume 97 fL (80-100)
--- NOTE | 2020-01-02 06:42 | NUR ---
PATIENT SLEPT ABOUT EIGHT HOURS LAST NIGHT. VSS. NO OTHER ACUTE CHANGES TO REPORT.
--- NOTE | 2020-01-02 07:17 | NUR ---
ASSUMED CARE AT 0700. RESTING IN BED WATCHING TV, A/A/OX3. UPDATED ON PLAN OF CARE FOR DAY. DENIES NEEDS AT THIS TIME.
[2020-01-02] MEDS ORDERED: METO25ER PO (09:34)
[2020-01-02] MEDS ORDERED: PANT40 PO (09:35)
--- NOTE | 2020-01-02 11:39 | NUR ---
DISCHARGED HOME. VERBAL AND WRITTEN INSTRUCTIONS GIVEN. MEDS CALLED INTO [facility]. IV'S DC'D WITH CATHETER IN TACT.
== END 2020-01-02 10:48 | disposition home or self-care (01) | DRG 813 ==
LOC: ER 18:43 → ERHOLD 21:24 → ICUW 21:24 → PCU 01-01 14:02
PROVIDERS: Emergency Medicine; Internal Medicine; Internal Medicine Gastroenterology; ADMIT Family Medicine
PROC: 0W3P8ZZ Control Bleeding in Gastrointestinal Tract, Via Natural or Artificial Opening Endoscopic (ICD-10-PCS; principal; 2019-12-30 09:45)
PROC: 3E0G8GC Introduction of Other Therapeutic Substance into Upper GI, Via Natural or Artificial Opening Endoscopic (ICD-10-PCS; 2019-12-30 09:45)
PROC: 30233N1 Transfusion of Nonautologous Red Blood Cells into Peripheral Vein, Percutaneous Approach (ICD-10-PCS; 2020-01-01)
DX: D68.32 Hemorrhagic disorder due to extrinsic circulating anticoagulants (principal); K26.4 Chronic or unspecified duodenal ulcer with hemorrhage; D62 Acute posthemorrhagic anemia; T45.515A Adverse effect of anticoagulants, initial encounter; I35.0 Nonrheumatic aortic (valve) stenosis; I25.10 Atherosclerotic heart disease of native coronary artery without angina pectoris; I10 Essential (primary) hypertension; J44.9 Chronic obstructive pulmonary disease, unspecified; E11.42 Type 2 diabetes mellitus with diabetic polyneuropathy; Z87.891 Personal history of nicotine dependence; I25.2 Old myocardial infarction; Z85.038 Personal history of other malignant neoplasm of large intestine; I48.0 Paroxysmal atrial fibrillation
CPT/HCPCS: 36415; 36430; 74177; 80048; 80053; 82947; 85014; 85018; 85025; 85027; 85610; 85730; 86850; 86900; 86901; 86923; 93005; 93010; 96361-59; 96374-59; 96375-59; 99285-25; A9270; A9270-GY; C9113; J0171; J1815; J2370; J2704; J7030; J7120; P9016; Q9967

== ENCOUNTER 2020-06-15 17:53 | Inpatient (IN) | payer OTHER, MEDICARE ==
[~2020-06-15] VITALS: Ht 170.2 cm; Wt 71.5 kg
[~2020-06-15 17:53] MED LIST changes: +ALDACTONE25 MG; +BASAGLAR K100 UNIT/4 SC; +FERRIC X-150150 M1 PO; +FURO20 PO; +PANT40 PO
[2020-06-15 18:59] LABS: BASOPHILS ABSOLUTE AUTO 0.02 K/mm3 (0.00-0.23); BASOPHILS PERCENT AUTO 0 % (0-2); EOSINOPHILS ABSOLUTE AUTO 0.13 K/mm3 (0.00-0.68); EOSINOPHILS PERCENT AUTO 1 % (0-6); Hematocrit 45.4 % (37.0-53.0); Hemoglobin 13.4 g/dL (13.5-17.5); IMMATURE GRAN ABSOLUTE AUTO 0.04 K/mm3 (0.00-0.10); IMMATURE GRAN PERCENT AUTO 0 % (0-1); LYMPHOCYTES ABSOLUTE AUTO 2.12 K/mm3 (0.84-5.20); LYMPHOCYTES PERCENT AUTO 20 % (21-46); MONOCYTES ABSOLUTE AUTO 1.13 K/mm3 (0.16-1.47); MONOCYTES PERCENT AUTO 11 % (4-13); Mean Corpuscular HGB 24.4 pg (26.0-34.0); Mean Corpuscular HGB Conc 29.5 g/dL (31.5-36.5); Mean Corpuscular Volume 83 fL (80-100); Mean Platelet Volume 10.2 fL (9.1-12.4); NEUTROPHILS ABSOLUTE AUTO 6.98 K/mm3 (1.96-9.15); NEUTROPHILS PERCENT AUTO 67 % (41-73); Platelet Count 181 K/mm3 (150-400); RDW Coefficient Variation 23.5 % (11.7-14.2); RDW Standard Deviation 70.4 fL (35.1-46.3); Red Blood Cell Count 5.49 M/mm3 (4.30-5.90); White Blood Cell Count 10.42 K/mm3 (4.00-11.30)
[2020-06-15 19:18] LABS: Albumin, Blood 3.2 g/dL (3.4-5.0); Albumin/Globulin Ratio 0.7 (0.8-1.8); Bilirubin, Total 0.5 mg/dL (0.1-1.0); Bun/Creatinine Ratio 27.6 (12.0-20.0); Calcium, Blood 9.4 mg/dL (8.5-10.1); Creatinine, Blood 1.27 mg/dL (0.60-1.20); Globulin, Blood 4.5 g/dL (2.2-4.0); Potassium, Blood 4.2 mmol/L (3.5-5.5); Total Protein, Blood 7.7 g/dL (6.4-8.2)
[2020-06-15 21:19] LABS: Source, Urine Clean Catch
[2020-06-15 21:29] LABS: Bilirubin, Urine Neg (Neg); Blood, Urine Neg (Neg); Glucose Qualitative, Urine Neg (Neg); Ketones, Urine Neg (Neg); Leukocyte Esterase, Urine Neg (Neg); Nitrite, Urine Neg (Neg); Protein, Urine 2+ (Neg); Specific Gravity, Urine 1.015 (1.003-1.022); Urobilinogen, Urine NORM (Normal)
[2020-06-15 21:41] LABS: Appearance, Urine Clear (Clear); Color, Urine Yellow (P-Yellow)
[2020-06-15 21:42] LABS: Bacteria Not Seen /hpf; Red Blood Cells, Urine Not Seen /hpf (0-2); Squamous Epithelial Cells Not Seen /hpf (Few); White Blood Cells, Urine Rare /hpf (0-5)
[2020-06-15 21:59] LABS: International Normalized Ratio 0.98; Prothrombin Time Results 10.5 Sec (9.7-11.5)
[2020-06-16 08:34] LABS: Alanine Aminotransfer (ALT/SGP 14 U/L (12-78); Albumin, Blood 2.9 g/dL (3.4-5.0); Albumin/Globulin Ratio 0.7 (0.8-1.8); Alk Phos 81 U/L (50-136); Anion Gap 4 mmol/L (6-16); Aspartate Aminotrans (AST/SGOT 34 U/L (12-37); Bilirubin, Total 0.6 mg/dL (0.1-1.0); Blood Urea Nitrogen 28 mg/dL (8-24); Bun/Creatinine Ratio 27.2 (12.0-20.0); CO2, Blood 30 mmol/L (21-32); Calcium, Blood 8.6 mg/dL (8.5-10.1); Chloride, Blood 106 mmol/L (98-108); Creatinine, Blood 1.03 mg/dL (0.60-1.20); Globulin, Blood 4.3 g/dL (2.2-4.0); Glomerular Filtration Rate >60 (60-); Glucose, Blood 125 mg/dL (70-99); Potassium, Blood 3.8 mmol/L (3.5-5.5); Sodium, Blood 140 mmol/L (136-145); Total Protein, Blood 7.2 g/dL (6.4-8.2)
[2020-06-16 13:31] LABS: BASOPHILS ABSOLUTE AUTO 0.03 K/mm3 (0.00-0.23); BASOPHILS PERCENT AUTO 0 % (0-2); EOSINOPHILS ABSOLUTE AUTO 0.18 K/mm3 (0.00-0.68); EOSINOPHILS PERCENT AUTO 2 % (0-6); Hemoglobin 12.8 g/dL (13.5-17.5); IMMATURE GRAN ABSOLUTE AUTO 0.03 K/mm3 (0.00-0.10); IMMATURE GRAN PERCENT AUTO 0 % (0-1); LYMPHOCYTES ABSOLUTE AUTO 1.89 K/mm3 (0.84-5.20); LYMPHOCYTES PERCENT AUTO 19 % (21-46); MONOCYTES ABSOLUTE AUTO 1.24 K/mm3 (0.16-1.47); MONOCYTES PERCENT AUTO 13 % (4-13); Mean Corpuscular HGB 24.9 pg (26.0-34.0); Mean Corpuscular HGB Conc 29.8 g/dL (31.5-36.5); Mean Corpuscular Volume 84 fL (80-100); NEUTROPHILS ABSOLUTE AUTO 6.55 K/mm3 (1.96-9.15); NEUTROPHILS PERCENT AUTO 66 % (41-73); Platelet Count 171 K/mm3 (150-400); RDW Coefficient Variation 23.9 % (11.7-14.2); Red Blood Cell Count 5.14 M/mm3 (4.30-5.90); White Blood Cell Count 9.92 K/mm3 (4.00-11.30)
--- NOTE | 2020-06-16 19:22 | NUR ---
PATIENT TO PROCEDURE: PATIENT IN WHEELCHAIR TO TELETYPE OR VARITYPE KEYBOARD OPERATOR FOR ANGIOGRAM. IV HEPARIN UNHOOKED; PHARMACY AWARE. FAMILY NOTIFIED OF PROCEDURE. PATIENT TO XFR TO ICU-14 AFTER COMPLETION OF PROCEDURE.
--- NOTE | 2020-06-16 20:40 | NUR ---
ASSUMED CARE NOTE: ASSUMED CARE OF PT AT 2140, RECEVIED REPORT FROM SENIOR WINDOWS ENGINEER NURSE AT BEDSIDE. PT RESPONDS TO VERBAL AND PAINFUL STIMULI. PT IS CONFUSED, UNABLE TO STATE PLACE, TIME, NOR EVENT. PT FOLLOWS SOME COMMANDS. PT ON 2L OF O2 VIA NC, WITH SPO2 ABOVE 95% BILAT UPPER LUNG SOUNDS ARE COARSE, BILAT LOWER LOBES ARE DIMINISHED. PT HAS A WEAK COUGH, GAG REFLEX PRESENT. DENTURES REMOVED AND CLEANED, SOAKING IN SOLUTION. ORAL CARE WAS GIVEN. PT IS IN AFIB WITH HR BETWEEN 90-105, HEART SOUNDS IRREGULAR, BILATERAL RADIAL PULSES ARE FAINT. BILAT PEDAL PULSES CANNOT BE FOUND WITH DOPPLER, MCGLADE AWARE. RIGHT POPLITEAL PULSE FOUND WITH DOPPLER, VERY FAINT SOUND. RIGHT FEMORAL ACCESS SITE HAS A SMALL HEMATOMA 3-5 CM, NO OZZING NOTED TO SITE. LEFT RADIAL SITE, HAS TR BAND IN PLACE, 11CC INFLATED PER CATH NURSE. NO OZZING TO RADIAL SITE, DISTAL DIGITS TO SITE ARE COOL TO THE TOUCH AND PALE. LEFT FEMORAL SITE IS FREE FROM HEMATOMA, NO OZZING TO SITE. LEFT POPILTEAL SITE IS FREE FROM OZZING, ACCORDING TO CATH NURSE, NO CATHETER WAS ADVANCED THROUGH THIS SITE, HOWEVER, SMALL PUNCTURE WAS MADE. BP STABLE, AFEBRILE. BOWEL TONES ARE HYPOACTIVE, TENDER IN ALL QUADRANTS. PT IS INCONTINENT OF URINE, SMALL CONDOM CATH PLACED TO PREVENT SKIN BREAKDOWN. BED AT LOWEST LEVEL, HEAD OF BED TO NOT EXCEED 30 DEGREES. WILL CONTINUE TO MONITOR PT.
--- NOTE | 2020-06-16 22:47 | NUR ---
AT BEDSIDE, ABLE TO FIND LEFT PEDAL PULSE WITH DOPPLER, VERY FAINT SOUND. REMOVED CHG TEGADERM DRESSING TO LEFT POPLITEAL CATH SITE. WILL CONTINUE TO MONITOR PT
--- NOTE | 2020-06-16 23:22 | NUR ---
ADMITTING NURSE JUAN Wang, COMPLETED MED REC AND ASKED MEDICATION HISTORY QUESTIONNER ON 06/15/20. THIS NURSE FILED DOCUMENTATION.
--- NOTE | 2020-06-16 23:42 | NUR ---
BEGAN DEFLATING TR BAND, 1CC REMOVED DUE TO PT CURRENTLY RECEVING HEPERIN. WILL DEFLATE SLOWLY, AND MONITOR CLOSELY.
--- NOTE | 2020-06-16 23:45 | NUR ---
[facility] UNSCHEDULE DOWN TIME LOST FOLLOWING DOCUMENTS COMPLETED: 06/15-06/16 QUICK ADMIT INITIAL ADMISSION SCREEN ADMISSION HX ADULT ADMISSION: ASSESSMENT ADULT IN ADDITION THE FOLLOWING NURSE NOTES LOST:06/15-06/16/20 ADMIT NOTE HEPARIN DRIP VERIFIED BY SERVICE CASHIER AND STARTED MCGLADE CONSULT CALLED TO ANSWERING SERVICE SHIFT SUMMARY
--- NOTE | 2020-06-17 00:24 | NUR ---
UPDATE: FEILD START IV TO RIGHT AC DISCONTINUED. NEW IV ACCESS SITE STARTED BY MARCEL OTERO TO RIGHT HAND. HEPARIN INFUSING THROUGH IV AT 17U/KG/HR.
--- NOTE | 2020-06-17 01:55 | NUR ---
PT ATTEMPTED TO GET OUT OF BED, FEET OVER THE RAIL. UPON ENTERING THE ROOM, PT REMOVED CONDOM CATH IN PLACE AND URINATED THE BED. PT WAS CLEANED UP, ATTENDS PLACED, LINEN CHANGED. PT REPOSITIONED TO RIGHT SIDE. PT REMINDED NOT TO USE LEFT ARM. LEFT RADIAL SITE TR BAND DEFLATED BY 2CC.
--- NOTE | 2020-06-17 03:30 | NUR ---
TR BAND DEFLATED, STILL IN PLACE, HAND IMMOBOLIZER IN PLACE. NO OZZING TO RIGHT RADIAL SITE. BILAT POPILTEAL PULSES FOUND WITH DOPPLER, PEDAL PULSE FOUND TO LEFT FOOT. UNABLE TO FIND RIGHT PEDAL PULSE. BLE COOL TO THE TOUCH.
--- NOTE | 2020-06-17 05:19 | NUR ---
TR BAND OFF SINCE 429, NO OZZING OR HEMATOMA NOTED. RIGHT AND LEFT FEMORAL SITE W/O CHANGE. WILL CONTINUE TO MONITOR
[2020-06-17 05:41] LABS: BASOPHILS ABSOLUTE AUTO 0.03 K/mm3 (0.00-0.23); BASOPHILS PERCENT AUTO 0 % (0-2); EOSINOPHILS ABSOLUTE AUTO 0.15 K/mm3 (0.00-0.68); EOSINOPHILS PERCENT AUTO 1 % (0-6); Hematocrit 42.5 % (37.0-53.0); Hemoglobin 12.3 g/dL (13.5-17.5); IMMATURE GRAN ABSOLUTE AUTO 0.05 K/mm3 (0.00-0.10); IMMATURE GRAN PERCENT AUTO 1 % (0-1); LYMPHOCYTES ABSOLUTE AUTO 1.52 K/mm3 (0.84-5.20); LYMPHOCYTES PERCENT AUTO 15 % (21-46); MONOCYTES ABSOLUTE AUTO 1.16 K/mm3 (0.16-1.47); MONOCYTES PERCENT AUTO 11 % (4-13); Mean Corpuscular HGB 24.4 pg (26.0-34.0); Mean Corpuscular HGB Conc 28.9 g/dL (31.5-36.5); Mean Corpuscular Volume 84 fL (80-100); NEUTROPHILS ABSOLUTE AUTO 7.54 K/mm3 (1.96-9.15); NEUTROPHILS PERCENT AUTO 72 % (41-73); Platelet Count 177 K/mm3 (150-400); RDW Coefficient Variation 23.2 % (11.7-14.2); RDW Standard Deviation 70.9 fL (35.1-46.3); Red Blood Cell Count 5.05 M/mm3 (4.30-5.90); White Blood Cell Count 10.45 K/mm3 (4.00-11.30)
--- NOTE | 2020-06-17 05:48 | NUR ---
SHIFT SUMMARY: SEE PREVIOUS NOTES. PT CONTINUES TO BE CONFUSED, HOWEVER IS ABLE TO COMMUNICATE NEEDS. PT IS MORE ALERT AND ABLE TO FOLLOW COMMANDS. PT IS ON RA WITH SPO2 AT 96% PT HAS BEEN IN NSR WITH HR IN A-FIB WITH HR IN THE 90-110. PT RECEVIED ONE DOSE OF FENTYNAL FOR PAIN THIS SHIFT, WITH GOOD EFFECT. TR BAND TO LEFT RADIAL SITE IS OFF AND TEGADREM WAS PLACED, NO OZZING OR HEMATOMA NOTED TO SITE. RIGHT FEMORAL SITE IN C/D/I, NO OZZING TO SIZE, SMALL HEMATOMA NOTED. LEFT FEMORAL SITE DRESSING WAS CHANGED DUE TO PT URININATING ON IT WHILE ON HIS SIDE. LEFT FEMORAL SITE HAS NOT OZZED AND NO HEMATOMA NOTED. WILL CONTINUE TO MONITOR PT UNTIL REPORT IS GIVEN TO ONCOMING SHIFT.
--- NOTE | 2020-06-17 06:09 | NUR ---
ORDERS TO DROP RATE OF D10 TO 75ML/HR. BLOOD SUGARS TO BE CHECKED Q3HRS.
[2020-06-17 06:10] LABS: Alanine Aminotransfer (ALT/SGP 13 U/L (12-78); Albumin, Blood 2.6 g/dL (3.4-5.0); Albumin/Globulin Ratio 0.6 (0.8-1.8); Alk Phos 70 U/L (50-136); Anion Gap 3 mmol/L (6-16); Aspartate Aminotrans (AST/SGOT 29 U/L (12-37); Bilirubin, Total 0.6 mg/dL (0.1-1.0); Blood Urea Nitrogen 20 mg/dL (8-24); Bun/Creatinine Ratio 21.2 (12.0-20.0); CO2, Blood 31 mmol/L (21-32); Chloride, Blood 106 mmol/L (98-108); Creatinine, Blood 0.94 mg/dL (0.60-1.20); Globulin, Blood 4.1 g/dL (2.2-4.0); Glomerular Filtration Rate >60 (60-); Glucose, Blood 81 mg/dL (70-99); Potassium, Blood 4.2 mmol/L (3.5-5.5); Sodium, Blood 140 mmol/L (136-145); Total Protein, Blood 6.7 g/dL (6.4-8.2)
--- NOTE | 2020-06-17 10:27 | NUR ---
PO MEDICATIONS ARE HELD PT IS DROWSY, UNABLE TO ENSURE THAT PT CAN PROTECT AIRWAY. LANTUS IS HELD PT IS NOT EATING, LAST GLUCOSE WAS 81.
--- NOTE | 2020-06-17 11:54 | NUR ---
PT AWOKE FROM SLEEP IS LESS CONFUSED, MORE AWAKE, DOES NOT DRIFT OFF TO SLEEP WHILE TALKING. PT PROVIDED WITH BED BATH WITH THIS RN AND ALBERT FTAIMA. PT WAS ABLE TO STAND AT BEDSIDE WITH OT. PT WAS ABLE THEN TO USE URINAL IN BED WITH THIS RN. PT IS ALERT AND ORIENTED TO TO SELF AND PLACE. SITTING UP AT BEDSIDE EATING AT THIS TIME.
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
--- NOTE | 2020-06-17 15:37 | NUR ---
REPORT CALLED TO MARCUS OTERO ON MEDICAL FLOOR. PT LEFT ICU WITH HEPARIN DRIP AT 17U/HR PER ORDER.
--- NOTE | 2020-06-17 19:36 | NUR ---
SHIFT SUMMARY: PATIENT XFR FROM ICU-14 THIS SHIFT. PT A&O; [place]; CALM AND COOPERATIVE WITH CARE. BLE REVASCULARIZATION 06/16 (DR STEVENS); BLE PALE, WARM & DRY; TEGADERM DRESSINGS TO BILATERAL GROIN SITES; C/D/I. HX AFIB; TELE IN PLACE; AFIB @ 102 UPON PLACING TELE BOX AFTER ARRIVAL ON MEDICAL FLOOR. EXPECTED D/C HOME 06/18. REPORT GIVEN TO ONCOMING RN.
[2020-06-18 05:28] LABS: BASOPHILS ABSOLUTE AUTO 0.05 K/mm3 (0.00-0.23); BASOPHILS PERCENT AUTO 1 % (0-2); EOSINOPHILS ABSOLUTE AUTO 0.23 K/mm3 (0.00-0.68); EOSINOPHILS PERCENT AUTO 2 % (0-6); Hematocrit 39.3 % (37.0-53.0); Hemoglobin 11.7 g/dL (13.5-17.5); IMMATURE GRAN ABSOLUTE AUTO 0.02 K/mm3 (0.00-0.10); IMMATURE GRAN PERCENT AUTO 0 % (0-1); LYMPHOCYTES ABSOLUTE AUTO 1.64 K/mm3 (0.84-5.20); LYMPHOCYTES PERCENT AUTO 17 % (21-46); MONOCYTES ABSOLUTE AUTO 1.03 K/mm3 (0.16-1.47); MONOCYTES PERCENT AUTO 11 % (4-13); Mean Corpuscular HGB 24.9 pg (26.0-34.0); Mean Corpuscular HGB Conc 29.8 g/dL (31.5-36.5); Mean Corpuscular Volume 84 fL (80-100); Mean Platelet Volume 9.8 fL (9.1-12.4); NEUTROPHILS ABSOLUTE AUTO 6.56 K/mm3 (1.96-9.15); NEUTROPHILS PERCENT AUTO 69 % (41-73); Platelet Count 174 K/mm3 (150-400); RDW Coefficient Variation 23.3 % (11.7-14.2); RDW Standard Deviation 70.2 fL (35.1-46.3); Red Blood Cell Count 4.69 M/mm3 (4.30-5.90); White Blood Cell Count 9.53 K/mm3 (4.00-11.30)
[2020-06-18 06:02] LABS: Anion Gap 4 mmol/L (6-16); Blood Urea Nitrogen 24 mg/dL (8-24); Bun/Creatinine Ratio 21.8 (12.0-20.0); CO2, Blood 30 mmol/L (21-32); Chloride, Blood 104 mmol/L (98-108); Glomerular Filtration Rate >60 (60-); Glucose, Blood 145 mg/dL (70-99); Potassium, Blood 4.3 mmol/L (3.5-5.5); Sodium, Blood 138 mmol/L (136-145)
--- NOTE | 2020-06-18 06:39 | NUR ---
SHIFT SUMMARY PT IS AN 85 Y/O MALE, ADMITTED FOR SPLENIC INFARCT. HE IS A&O X 2-3, CONFUSED AT TIMES, AND 2PA OUT OF BED. HE WAS MEDICATED TWICE WITH PRN OXYCODONE FOR CHRONIC GENERALIZED PAIN. NO COMPLAINTS OF NAUSEA OR SOB. PT HAD A BLE RE-VASCULARIZATION PROCEDURE YESTERDAY, SITES INTACT. TELE SHOWED A-FLUTTER IN THE 100S, THOUGH IT OCCASIONALLY JUMPS UP TO THE 130S. VITAL SIGNS OTHERWISE STABLE. PT IS ON A HEPARIN DRIP, CURRENTLY AT 17 U/KG OR 23.1 ML/HR. NO OTHER ACUTE CHANGES IN PT CONDITION NOTED. WILL CONTINUE TO MONITOR AND TREAT PER EMAR UNTIL HAND OFF TO DAY SHIFT RN.
[2020-06-18] MEDS ORDERED: ALBU90OI INH (10:46)
[2020-06-18] MEDS ORDERED: XARELTO20 MG PO (10:47)
[2020-06-18] MEDS ORDERED: ONDA4ODT MM (10:47)
--- NOTE | 2020-06-18 12:17 | NUR ---
Discharge Summary A/Ox3, poor historian. Pleasant and cooperative with care. Had a bedbath. Medicated for pain x 1 with good relief. Patient discharged to home. Reviewed discharge paperwork with son at bedside, no questions at this time. IV removed, WNL. Meds faxed to preferred pharmacy. Escorted by [employer]MER via w/c, personal belongings sent home. Patient encouraged to call and schedule f/u appointment, patient info stickers placed on appointment list at the desk for CM's to also f/u with setting appointment.
== END 2020-06-18 11:38 | disposition home health service (06) | DRG 815 ==
LOC: ER 17:53 → MEDS 17:54 → ICUW 06-16 20:44 → MEDS 06-17 15:26
PROVIDERS: Emergency Medicine; Family Medicine; ADMIT Internal Medicine
PROC: B41JYZZ Fluoroscopy of Other Lower Arteries using Other Contrast (ICD-10-PCS; principal; 2020-06-16)
DX: D73.5 Infarction of spleen (principal); I48.20 Chronic atrial fibrillation, unspecified; I77.4 Celiac artery compression syndrome; M31.9 Necrotizing vasculopathy, unspecified; I35.0 Nonrheumatic aortic (valve) stenosis; F03.90 Unspecified dementia, unspecified severity, without behavioral disturbance, psychotic disturbance, mood disturbance, and anxiety; I25.10 Atherosclerotic heart disease of native coronary artery without angina pectoris; I73.9 Peripheral vascular disease, unspecified; J44.9 Chronic obstructive pulmonary disease, unspecified; I65.29 Occlusion and stenosis of unspecified carotid artery; E78.5 Hyperlipidemia, unspecified; I10 Essential (primary) hypertension; E11.9 Type 2 diabetes mellitus without complications; F17.210 Nicotine dependence, cigarettes, uncomplicated; Z79.4 Long term (current) use of insulin; Z86.73 Personal history of transient ischemic attack (TIA), and cerebral infarction without residual deficits; Z85.038 Personal history of other malignant neoplasm of large intestine
CPT/HCPCS: 36415; 51798; 74176; 74177; 80048; 80053; 81001; 82947; 83880; 85025; 85610; 85730; 93926; 94760; 96361; 96372; 96374; 96375; 97162; 97166; 97530; 97535; 99152; 99153; 99285-25; A9270-GY; C1714; C1757; C1760; C1769; C1887; C1894; C2623; G0378; J1170; J1644; J2060; J2250; J3010; J7030; Q9967

== ENCOUNTER 2020-09-27 06:04 | Day surgery (SDC) | payer OTHER, MEDICARE ==
[~2020-09-27] VITALS: Ht 172.7 cm; Wt 74.0 kg
[~2020-09-27 06:04] MED LIST changes: +ALBU90OI INH; +ONDA4ODT MM; +XARELTO20 MG PO
--- NOTE | 2020-09-27 13:39 | NUR ---
PT DRESSED, CALLED TO PICKUP, IV DC'D INTACT, PT DC'D BY WC BY THIS RN, DRIVING PT HOME
== END 2020-09-27 13:45 | disposition home or self-care (01) ==
LOC: MHTC 06:04
DX: I70.213 Atherosclerosis of native arteries of extremities with intermittent claudication, bilateral legs (principal); K55.9 Vascular disorder of intestine, unspecified; G47.9 Sleep disorder, unspecified; Z88.5 Allergy status to narcotic agent; Z88.8 Allergy status to other drugs, medicaments and biological substances
CPT/HCPCS: 37228; 37232; 75716; 75774; 82947; 85347; 99152; 99153; C1725; C1757; C1760; C1769; C1874; C1887; C1894; C9765; J1644; J3010; J7030; J7050; Q9967

== ENCOUNTER 2021-01-10 13:06 | Emergency (ER) | payer OTHER, MEDICARE ==
[~2021-01-10] VITALS: Ht 172.7 cm; Wt 81.7 kg
[2021-01-10 13:59] LABS: BASOPHILS ABSOLUTE AUTO 0.04 K/mm3 (0.00-0.23); BASOPHILS PERCENT AUTO 0 % (0-2); EOSINOPHILS ABSOLUTE AUTO 0.06 K/mm3 (0.00-0.68); EOSINOPHILS PERCENT AUTO 1 % (0-6); IMMATURE GRAN ABSOLUTE AUTO 0.05 K/mm3 (0.00-0.10); IMMATURE GRAN PERCENT AUTO 1 % (0-1); LYMPHOCYTES PERCENT AUTO 17 % (21-46); MONOCYTES ABSOLUTE AUTO 0.92 K/mm3 (0.16-1.47); MONOCYTES PERCENT AUTO 10 % (4-13); Mean Corpuscular HGB 31.3 pg (26.0-34.0); Mean Corpuscular HGB Conc 32.7 g/dL (31.5-36.5); Mean Corpuscular Volume 96 fL (80-100); Mean Platelet Volume 10.1 fL (9.1-12.4); NEUTROPHILS ABSOLUTE AUTO 7.03 K/mm3 (1.96-9.15); NEUTROPHILS PERCENT AUTO 73 % (41-73); Platelet Count 194 K/mm3 (150-400); RDW Coefficient Variation 13.4 % (11.7-14.2); RDW Standard Deviation 47.6 fL (35.1-46.3); Red Blood Cell Count 5.44 M/mm3 (4.30-5.90)
[2021-01-10 14:21] LABS: Alanine Aminotransfer (ALT/SGP 17 U/L (12-78); Albumin, Blood 3.2 g/dL (3.4-5.0); Albumin/Globulin Ratio 0.7 (0.8-1.8); Alk Phos 81 U/L (50-136); Anion Gap 6 mmol/L (6-16); Aspartate Aminotrans (AST/SGOT 24 U/L (12-37); Bilirubin, Total 0.4 mg/dL (0.1-1.0); Blood Urea Nitrogen 37 mg/dL (8-24); Bun/Creatinine Ratio 32.2 (12.0-20.0); CO2, Blood 27 mmol/L (21-32); Calcium, Blood 9.2 mg/dL (8.5-10.1); Chloride, Blood 102 mmol/L (98-108); Creatinine, Blood 1.15 mg/dL (0.60-1.20); Globulin, Blood 4.7 g/dL (2.2-4.0); Glomerular Filtration Rate >60 (60-); Glucose, Blood 204 mg/dL (70-99); Sodium, Blood 135 mmol/L (136-145); Total Protein, Blood 7.9 g/dL (6.4-8.2)
[2021-01-10] MEDS ORDERED: Bactrim Ds Tab1 EACH PO (16:02)
== END 2021-01-10 16:32 | disposition home or self-care (01) ==
LOC: ER 13:06
PROVIDERS: Physician Assistant
DX: L02.11 Cutaneous abscess of neck (principal); I11.0 Hypertensive heart disease with heart failure; I50.9 Heart failure, unspecified; I48.0 Paroxysmal atrial fibrillation; J44.9 Chronic obstructive pulmonary disease, unspecified; Z88.5 Allergy status to narcotic agent; Z88.6 Allergy status to analgesic agent; Z79.01 Long term (current) use of anticoagulants; Z79.899 Other long term (current) drug therapy; Z87.891 Personal history of nicotine dependence
CPT/HCPCS: 10060; 36415; 70491; 80053; 85025; 99283-25; Q9967

== ENCOUNTER 2021-05-11 10:41 | Emergency (ER) | payer MEDICARE, OTHER ==
[~2021-05-11] VITALS: Ht 172.7 cm; Wt 72.6 kg
[~2021-05-11 10:41] MED LIST changes: +Bactrim Ds Tab1 EACH PO; +FEROSUL325 M1 PO; -FERRIC X-150150 M1 PO
[2021-05-11 11:36] LABS: BASOPHILS ABSOLUTE AUTO 0.02 K/mm3 (0.00-0.23); BASOPHILS PERCENT AUTO 0 % (0-2); EOSINOPHILS ABSOLUTE AUTO 0.12 K/mm3 (0.00-0.68); EOSINOPHILS PERCENT AUTO 2 % (0-6); Hematocrit 53.1 % (37.0-53.0); Hemoglobin 17.2 g/dL (13.5-17.5); IMMATURE GRAN ABSOLUTE AUTO 0.03 K/mm3 (0.00-0.10); IMMATURE GRAN PERCENT AUTO 0 % (0-1); LYMPHOCYTES ABSOLUTE AUTO 1.53 K/mm3 (0.84-5.20); LYMPHOCYTES PERCENT AUTO 20 % (21-46); MONOCYTES ABSOLUTE AUTO 0.72 K/mm3 (0.16-1.47); MONOCYTES PERCENT AUTO 9 % (4-13); Mean Corpuscular HGB 31.5 pg (26.0-34.0); Mean Corpuscular HGB Conc 32.4 g/dL (31.5-36.5); Mean Corpuscular Volume 97 fL (80-100); Mean Platelet Volume 10.1 fL (9.1-12.4); NEUTROPHILS ABSOLUTE AUTO 5.24 K/mm3 (1.96-9.15); NEUTROPHILS PERCENT AUTO 68 % (41-73); Platelet Count 173 K/mm3 (150-400); RDW Standard Deviation 46.8 fL (35.1-46.3); Red Blood Cell Count 5.46 M/mm3 (4.30-5.90); White Blood Cell Count 7.66 K/mm3 (4.00-11.30)
[2021-05-11 11:59] LABS: Albumin, Blood 3.2 g/dL (3.4-5.0); Albumin/Globulin Ratio 0.7 (0.8-1.8); Bilirubin, Total 0.5 mg/dL (0.1-1.0); Bun/Creatinine Ratio 29.4 (12.0-20.0); Calcium, Blood 9.2 mg/dL (8.5-10.1); Creatinine, Blood 1.19 mg/dL (0.60-1.20); Globulin, Blood 4.5 g/dL (2.2-4.0); Potassium, Blood 4.1 mmol/L (3.5-5.5); Total Protein, Blood 7.7 g/dL (6.4-8.2); Troponin I 0.05 ng/mL (0.000-0.040)
[2021-05-11] MEDS ORDERED: XARELTO15 M1 PO (13:48)
[2021-05-11] MEDS ORDERED: JARDIANCE25 MG PO (13:48)
[2021-05-11] MEDS ORDERED: MULVITA PO (14:05)
[2021-05-11] MEDS ORDERED: OXYC5 PO (14:06)
[2021-05-11] MEDS ORDERED: Vitamin B Comple1 EA PO (14:07)
--- NOTE | 2021-05-11 14:41 | NUR ---
Case conferenced with microscopist in ER who has spoken to pt's Dr and . Pt is being d/c'd home with with medications to address his CP. Pt has severe aortic stenosis and CAD that he is not a candidate for surgical intervention due to age, multiple comorbidities and risk factors. CM to contact pt's PCP at the [facility] to request f/u with hospice orders and palliative care. I contacted [facility] Palliative care team and requested f/u and assist in coordinating EOL care for Gary. I will fax today's ER documentation to Claudio in the [facility] department as soon as it is available.
[2021-05-11 15:01] LABS: SARS-Cov-2 (COVID-19) PCR, MMC NEGATIVE (NEGATIVE)
--- NOTE | 2021-05-11 15:20 | NUR ---
Records, including today's ER visit note, faxed ATTN Mere/Yusuf Morley at the [facility] at 1500. 24 pages to include previous admission d/c summary, echo and angiogram reports from 2020.
== END 2021-05-11 15:25 | disposition home or self-care (01) ==
LOC: ER 10:41
PROVIDERS: Emergency Medicine; Physician Assistant
DX: I21.4 Non-ST elevation (NSTEMI) myocardial infarction (principal); I35.0 Nonrheumatic aortic (valve) stenosis; I48.0 Paroxysmal atrial fibrillation; I25.10 Atherosclerotic heart disease of native coronary artery without angina pectoris; J44.9 Chronic obstructive pulmonary disease, unspecified; I11.0 Hypertensive heart disease with heart failure; I50.9 Heart failure, unspecified; E11.9 Type 2 diabetes mellitus without complications; E78.5 Hyperlipidemia, unspecified; Z20.822 Contact with and (suspected) exposure to COVID-19; Z86.73 Personal history of transient ischemic attack (TIA), and cerebral infarction without residual deficits; Z88.5 Allergy status to narcotic agent; Z88.6 Allergy status to analgesic agent; Z91.018 Allergy to other foods; Z88.8 Allergy status to other drugs, medicaments and biological substances; Z88.1 Allergy status to other antibiotic agents; Z79.899 Other long term (current) drug therapy; Z79.4 Long term (current) use of insulin
CPT/HCPCS: 36415; 71045; 80053; 84484; 85025; 93005; 93010; 99285-25; A9270; U0004